=== PATIENT | male | born 1955 | race Two or more races ===

== ENCOUNTER 2016-04-06 20:03 | Emergency (ER) | payer OTHER ==
[~2016-04-06] VITALS: Ht 167.6 cm; Wt 65.8 kg
[2016-04-06] MEDS ORDERED: IBUPROFEN 600 MG TABLET PO ONE ×2 (22:00→22:03)
[2016-04-06] MEDS ORDERED: BACI/NEOM/POLY B OINT PKT 1 UDPKT PACKET TP ONE (22:00)
[2016-04-06] MEDS ORDERED: BACI/NEOM/POLY B OINT PKT 1 UDPKT PACKET ONE (22:03)
[2016-04-06 22:21] VITALS: BP 148/78
== END 2016-04-06 22:22 | disposition home or self-care (01) ==
LOC: ER 20:08
DX: S00.81XA Abrasion of other part of head, initial encounter (principal); S80.811A Abrasion, right lower leg, initial encounter; E78.00 Pure hypercholesterolemia, unspecified; W18.39XA Other fall on same level, initial encounter; Y93.89 Activity, other specified; Y92.89 Other specified places as the place of occurrence of the external cause; Y99.0 Civilian activity done for income or pay
CPT/HCPCS: A4606; A6402; Z7610